=== PATIENT | male | born 1960 | race Caucasian/White ===

== ENCOUNTER → 2019-04-25 | Outpatient (CLI) | payer OTHER, SELFPAY | END | disposition home or self-care (01) | LOC: LABSPEC 16:04 | PROVIDERS: PCP Family Medicine; Referring Provider Otolaryngology Otolaryngology/Facial Plastic Surgery; Visit Provider Otolaryngology Otolaryngology/Facial Plastic Surgery | DX: J32.9 Chronic sinusitis, unspecified (principal) | CPT/HCPCS: 87070; 87077; 87205 ==

== ENCOUNTER → 2019-11-16 09:18 | Outpatient (CLI) | payer OTHER, SELFPAY ==
--- NOTE | 2019-11-16 | ASPOS_PTH ---
PATIENT: NORAH CHAVEZ LOC: LAB U#:[id number] AGE/SX: 65/M ROOM: RE11/16/[address]: Dr. Jovan Solomon DO : 1960 BED: DIS: SPEC #: [id number] RECD: 11/16/19 10:15 STATUS: VIRAL REQ #: [id number] YARON: 11/16/19 00:[address]: Jovan Rey DEPT: CYTOLOGY RECD BY: Carmelita Mayo ENTERED: 11/16/19 11:24 SP TYPE: ASP HERE OTHR DR: DO Dr. Bernard Ye MD Tissues: Parotid gland, NOS Procedures: Surgery Specimen Level IV Cytology Other Fine Needle Asp on Site Comments: @ Ordering doctor for SUIV edited from to @ by RGOHILTON at 11/17/19 1426 @ Ordering doctor for CYOTHER edited from to DR.AMATHU Ambrosio by RGOHILTON at 11/17/19 1426 @ Ordering doctor for FNAOS edited from to @ by RGOHILTON at 11/17/19 1426 @ Submitting doctor edited from to @ by RGOOD at 11/17/19 1426 HEADER OPERATION: Fine needle aspiration left parotid mass PRE-OP DIAGNOSIS: Left parotid mass TISSUE SUBMITTED: Left parotid mass DIAGNOSIS CYTOLOGY Left parotid mass, FNA (smears and cell block): Inflamed cystic lesion with atypical squamous epithelial cells and marked degenerative changes. See comment. SJ:eliud 11/17/19 COMMENT The specimen is evaluated at the time of FNA by Dr. Solomon. Immediate Evaluation = Consistent with contents of benign inflamed cyst. Excision of the lesion is necessary for definitive diagnosis. Clinical correlation and appropriate follow up are necessary. CYTOLOGY STUDY Slides are reviewed. CYTOLOGY GROSS Received is 2 ml of light rivero mucoid fluid labeled with the patient's name, and designated left parotid mass. Five imprints and five paps are made from the submitted fluid and the rest is added to CytoLyt for cell block preparation. Submitted for cytology study. / AM:eliud 11/16/19 TC:5 CPT: 67303, 05631, 60436, 30717
== END ==
PROVIDERS: PCP Family Medicine; Referring Provider Pathology Anatomic Pathology & Clinical Pathology; Visit Provider Pathology Anatomic Pathology & Clinical Pathology
DX: K11.8 Other diseases of salivary glands (principal)
CPT/HCPCS: 10021; 88161; 88305

== ENCOUNTER → 2019-12-05 08:07 | Outpatient (CLI) | payer OTHER, SELFPAY ==
--- NOTE | 2019-12-05 08:09 | CT_ITS ---
STUDY: CT SOFT TISSUE NECK WITH CONTRAST REASON FOR EXAM: Male, 59 years old. LEFT SIDED NECK MASS (MARKED WITH A BB) X 1 MONTH. RECENT BIOPSY OF MASS WHICH SHOWS BENIGN CYST RADIATION DOSAGE (If Supplied By Facility): CTDIvol = ( 18.72 ) mGy, DLP = ( 504.95 ) mGycm TECHNIQUE: The patient was scanned in a multi-detector CT scanner. High resolution transaxial imaging was performed following intravenous administration of IV 100mL Isovue-300. Sagittal and coronal images were reconstructed. Individualized dose optimization techniques were used for this CT. COMPARISON: None. FINDINGS: Normal bilateral parotid glands. Normal bilateral insurance specialist spaces. Normal bilateral parapharyngeal spaces. Normal bilateral carotid spaces. Normal bilateral sublingual and submandibular glands and spaces. Normal visualized nasopharynx. Normal retropharyngeal space. Normal perivertebral space. Normal visualized bilateral faucial tonsils. The visualized tongue, tongue base and oropharynx are normal. 3 cm round necrotic left jugular lymph node at the level of the floor the mouth worrisome for metastatic lymphadenopathy. However, no obvious etiology. There is no demonstrated solid or cystic mass lesion. There is no abnormal contrast enhancement. Normal epiglottis, bilateral vallecula and hypopharynx. The pre-epiglottic and paraglottic adipose spaces are normal. Normal visualized bilateral piriform sinuses, aryepiglottic folds, vocal cords, and arytenoid-cricoid articulations. Normal subglottic trachea. Normal bilateral lobes of the thyroid gland. Normal visualized pulmonary apices. Normal visualized paranasal sinuses. Normal visualized cervical spine. CT/Soft Tissue Neck WITH Contrast IMPRESSION: 3 cm necrotic left jugular lymphadenopathy the level before the mouth without obvious etiology. Clinical correlation is recommended. Electronically Signed: Troy Craig MD at 12:38 EDT Tel , Service support ,
[2019-12-05 08:20] LABS: CREATININE FINGERSTICK 0.9 mg/dL (0.70-1.30); EGFR FINGERSTICK > 60.0000 mL/min (>60)
== END ==
PROVIDERS: PCP Family Medicine; Referring Provider Otolaryngology Otolaryngology/Facial Plastic Surgery; Visit Provider Otolaryngology Otolaryngology/Facial Plastic Surgery
DX: R22.1 Localized swelling, mass and lump, neck (principal)
CPT/HCPCS: 70491; Q9967

== ENCOUNTER 2020-01-01 07:58 | Day surgery (SDC) | payer OTHER, SELFPAY ==
--- NOTE | 2019-12-26 12:17 | EKG12_ITS ---
Test Reason : PREOP Blood Pressure : / mmHG Vent. Rate : 086 BPM Atrial Rate : 086 BPM P-R Int : 160 ms QRS Dur : 100 ms QT Int : 372 ms P-R-T Axes : 074 064 085 degrees QTc Int : 445 ms Normal sinus rhythm Normal ECG Confirmed by DANIEL HUNT, ADINA ([id number]), desk editor TERI HICKS ([id number]) on 12/27/2019 9:13:23 AM Referred By: Ibrahima Rey Confirmed By:ADINA SANCHEZ MD
[2019-12-26 13:13] LABS: Hematocrit 42.5 % (40-54); Hemoglobin 14.4 g/dL (13.0-16.5); Mean Corp Hgb Conc 33.9 g/dL (32-36); Mean Corpuscular Hgb 34.9 pg (27.0-32.0); Mean Corpuscular Volume 102.9 fL (80-94); Mean Platelet Vol. 10.8 fl (6.2-12.0); Platelet Count 195 K/mm3 (150-450); RBC Distribution Width CV 12.1 % (11.6-14.6); RBC Distribution Width SD 45.8 fl (35.1-43.9); Red Blood Count 4.13 M/mm3 (4.6-6.2); White Blood Count 7.4 K/mm3 (4.4-11.0)
[2019-12-26 13:51] LABS: Anion Gap 6 (5-15); BUN 10 mg/dL (7-18); Calcium,Total 9.4 mg/dL (8.5-10.1); Chloride 105 mmol/L (98-107); EST Glomerular Filtration Rate 81 mL/min (>60); Est Glom Filt Rate - Afr Amer 98 mL/min (>60); Glucose 127 mg/dL (74-106); Sodium Level 138 mmol/L (136-145)
--- NOTE | 2020-01-01 | PHA_PTH ---
PATIENT: NORAH CHAVEZ [place] [facility] [place][id number] AGE/SX: 59/M ROOM: RE01/01/[address]: Dr. Ibrahima Rey MD : 1960 BED: DIS: 01/01/2020 SPEC #: [id number] RECD: 01/01/20 10:28 STATUS: VIRAL FINA #: [id number] YARON: 01/01/20 00:[address]: Ibrahima Rey DEPT: SURGICAL PATHOLOGY RECD BY: Belinda Field ENTERED: 01/01/20 11:01 SP TYPE: PHARYNX BX OTHR DR: Dr. Bernard Noe MD Tissues: A - Oropharynx, NOS B - Oropharynx, NOS C - Oropharynx, NOS D - Oropharynx, NOS E - Tonsil, NOS F - Tonsil, NOS G - Tongue, NOS Procedures: Frozen Section (charge) Frozen Section Add'l ([facility]) Surgery Specimen Level IV HEADER OPERATION: Direct laryngoscopy with biopsy and fine needle aspiration PRE-OP DIAGNOSIS: Localized swelling mass and lump left neck TISSUE SUBMITTED: A - Left inferior oropharynx, FS at 1023, B - Mid left oropharynx, FS at 1023, C - Superior left oropharynx, FS at 1023, D - Mid oropharynx, FS at 1026, E - Left tonsil, FS at 1103, F - Right tonsil for permanent, G - Left base of tongue for permanent FROZEN SECTION DIAGNOSIS A. Left inferior oropharynx, biopsy: No evidence of carcinoma. B. Mid left oropharynx, biopsy: No evidence of carcinoma. C. Superior left oropharynx, biopsy: No evidence of carcinoma. D. Mid oropharynx #2, biopsy: No evidence of carcinoma. AM:eliud 01/01/20 Case has been reviewed in consultation with Dr. Payton who concurs with the above diagnosis. 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 AM:eliud 01/01/20 MICROSCOPIC DIAGNOSIS A. Left inferior oropharynx, biopsy: Negative for carcinoma. B. Mid left oropharynx, biopsy: Negative for carcinoma. C. Superior left oropharynx, biopsy: Negative for carcinoma. D. Mid oropharynx #2, biopsy: Negative for carcinoma. See comment. E. Left tonsil, biopsy: Focal high grade dysplasia/carcinoma in situ. No evidence of invasive carcinoma. See comment. F. Right tonsil, biopsy: A piece of squamous mucosa, negative for carcinoma. See comment. G. Left base of tongue, biopsy: A piece of squamous mucosa, negative for carcinoma. See comment. DHARA:eliud 01/10/20 COMMENT D. Benign lymphoid tissue consistent with tonsillar tissue is noted. E. Immunohistochemistry ([id number]) performed here and also at [facility] supports the above diagnosis. The specimen is sent to [facility] for expert opinion and reviewed by Dr. Harris and above diagnosis is rendered. The complete report is viewable in patient's EMR. F. Lymphoid tissue is not seen. G. Benign lymphoid tissue consistent with tonsillar tissue is also noted. Case has been reviewed in consultation with Dr. Solomon who concurs with the above diagnosis. IDC:AM MICROSCOPIC DESCRIPTION Slides are reviewed. GROSS DESCRIPTION A - Received fresh for frozen section diagnosis labeled with the patient's name is a specimen designated left inferior oropharynx. The specimen consists of a piece of rivero soft tissue measuring 0.6 x 0.5 x 0.2 cm. The entire specimen is submitted for frozen section diagnosis in one cassette. / AM: 01/01/20 B - Received fresh for frozen section diagnosis labeled with the patient's name is a specimen designated mid left oropharynx. The specimen consists of a piece of rivero soft tissue measuring 1 x 1 x 0.1 cm. The entire specimen is submitted for frozen section diagnosis in one cassette. / AM: 01/01/20 C - Received fresh for frozen section diagnosis labeled with the patient's name is a specimen designated superior left oropharynx. The specimen consists of a piece of rivero soft tissue measuring 0.7 x 0.5 x 0.1 cm. The entire specimen is submitted for frozen section diagnosis in one cassette. / AM: 01/01/20 D - Received fresh for frozen section diagnosis labeled with the patient's name is a specimen designated mid oropharynx #2. The specimen consists of a piece of rivero soft tissue measuring 0.3 x 0.3 x 0.1 cm. The entire specimen is submitted for frozen section diagnosis in one cassette. / AM: 01/01/20 E - Received fresh for frozen section diagnosis labeled with the patient's name is a specimen designated left tonsil. The specimen consists of two fragments of red-rivero soft tissue measuring 0.5 and 2.8 x 1.2 x 0.6 cm. This piece is serially sectioned. The entire specimen is submitted for frozen section diagnosis in two cassettes. / AM: 01/01/20 F - Received in fixative is one container labeled with the patient's name and designated right tonsil. The specimen consists of a piece of rivero mucosal tissue measuring 0.7 x 0.7 x 0.3 cm. The entire specimen is submitted in one cassette. / SJ: 01/01/20 G - Received in fixative is one container labeled with the patient's name and designated base of tongue left. The specimen consists of a piece of rivero mucosal tissue measuring 0.5 x 0.5 x 0.3 cm. The entire specimen is submitted in one cassette. / SJ: 01/01/20 TC:0 CPT: 66678 x7, 15879 x5, 62063
--- NOTE | 2020-01-01 | IMM_PTH ---
PATIENT: NORAH CHAVEZ [place] [facility] [id number] AGE/SX: 59/M ROOM: RE01/01/[address]: Dr. Ibrahima Rey MD : 1960 BED: DIS: 01/01/2020 SPEC #: [id number] RECD: 01/03/20 12:27 STATUS: VIRAL REQ #: [id number] YARON: 01/01/20 00:[address]: Ibrahima Rey DEPT: IMMUNOHISTOCHEMISTRY RECD BY: Belinda Field ENTERED: 01/03/20 12:29 SP TYPE: IMMUNO OTHR DR: Dr. Bernard Noe MD Tissues: E - Tonsil, NOS Procedures: CK14 (add) CK5-6 (add) KI-67 (add) P16 (add) P53 (add) Pankeratin (initial) P40 (add) PHYSICIAN & INSTITUTION [place] [id number] SPECIMEN INFORMATION: Tissue Source: E - Left tonsil Clinical Info: Localized swelling mass and lump left neck Specimen Number: [id number] E1 CPT code: 85922, 66402 x6 METHODOLOGY: Deparaffinized sections of prefer/formalin-fixed tissue or PAP/DQ stained slides are incubated with monoclonal/polyclonal antibodies/oligonucleotide probes. Localization is made via biotin free immunoperoxidase method. Appropriate controls are performed and reacted as expected. Results on target cell population are indicated in the following table: RESULTS: ANTIBODY / CLONE RESULT Block E1 AE1-3 (AE1/AE3/PCK26) positive, focal CK5-6 (D5 & 1684) positive CK14 (LL002) positive P40 (BC28) positive P16 (E6H4) positive, focal, patchy Ki-67 (30-9) positive, low P53 (DO-7) positive, rare These tests were developed and their performance characteristics determined by [facility]. They may not have been cleared or approved by the U.S. Food and Drug Administration. The FDA has determined that such clearance or approval is not necessary. The above immunohistochemical/dualISH markers are ordered and reviewed by the Pathologist. INTERPRETATION: E. Left tonsil, biopsy: Focal high grade dysplasia/carcinoma in situ. SJ:eliud 01/10/20 The specimen is sent to [facility] for expert opinion and reviewed by Dr. Harris and above diagnosis is rendered. This case has been reviewed in consultation with Dr. Solomon who concurs with the above diagnosis.
--- NOTE | 2020-01-01 | IMM_PTH ---
PATIENT: NORAH CHAVEZ [place] [facility] [place][id number] AGE/SX: 59/M ROOM: RE01/01/[address]: Dr. Ibrahima Rey MD : 1960 BED: DIS: 01/01/2020 SPEC #: [id number] RECD: 01/02/20 14:10 STATUS: VIRAL REQ #: [id number] YARON: 01/01/20 00:[address]: Ibrahima Rey DEPT: IMMUNOHISTOCHEMISTRY RECD BY: Belinda Field ENTERED: 01/02/20 14:11 SP TYPE: IMMUNO OTHR DR: Dr. Bernard Noe MD Tissues: Neck, NOS Procedures: CK14 (add) CK5-6 (add) CK7 (add) KI-67 (add) P16 (add) Pankeratin (initial) P40 (add) PHYSICIAN & INSTITUTION [place] [id number] SPECIMEN INFORMATION: Tissue Source: FNA left neck Clinical Info: Localized swelling mass and lump left neck Specimen Number: [id number] CPT code: 43456, 47489 x6 METHODOLOGY: Deparaffinized sections of prefer/formalin-fixed tissue or PAP/DQ stained slides are incubated with monoclonal/polyclonal antibodies/oligonucleotide probes. Localization is made via biotin free immunoperoxidase method. Appropriate controls are performed and reacted as expected. Results on target cell population are indicated in the following table: RESULTS: ANTIBODY / CLONE RESULT AE1-3 (AE1/AE3/PCK26) positive CK7 (OV-TL12/30) negative CK5-6 (D5 & 1684) positive CK14 (LL002) positive P40 (BC28) negative P16 (E6H4) negative Ki-67 (30-9) negative These tests were developed and their performance characteristics determined by [facility]. They may not have been cleared or approved by the U.S. Food and Drug Administration. The FDA has determined that such clearance or approval is not necessary. The above immunohistochemical/dualISH markers are ordered and reviewed by the Pathologist. INTERPRETATION: Left neck, fine needle aspiration: Atypical squamous cells consistent with metastatic squamous cell carcinoma. AM:eliud 01/03/20 Case has been reviewed in consultation with Dr. Payton who concurs with the above diagnosis. IDC:DHARA
--- NOTE | 2020-01-01 | FLU_PTH ---
PATIENT: NORAH CHAVEZ LOC: [facility] [place] U#:[id number] AGE/SX: 59/M ROOM: RE01/01/[address]: Dr. Ibrahima Rey MD : 1960 BED: DIS: 01/01/2020 SPEC #: [id number] RECD: 01/01/20 13:16 STATUS: VIRAL FINA #: [id number] YARON: 01/01/20 00:[address]: Ibrahima Rey DEPT: CYTOLOGY RECD BY: Carmelita Mayo ENTERED: 01/01/20 13:17 SP TYPE: Fluid OTHR DR: Dr. Bernard Noe MD Tissues: Neck, NOS Procedures: Special Stain Group II Cytospin Fluid HEADER OPERATION: Direct laryngoscopy with biopsy and fine needle aspiration PRE-OP DIAGNOSIS: Localized swelling mass and lump left neck TISSUE SUBMITTED: Fine needle aspiration left neck DIAGNOSIS CYTOLOGY Fine needle aspiration, left neck mass (cytospin and cell block): Atypical degenerating squamoid cells consistent with metastatic squamous cell carcinoma. AM:eliud 01/02/20 COMMENT Immunohistochemistry ([id number]) supports the above diagnosis. Please correlate with surgical specimen ([id number]). Reference is made to the patient's left parotid mass fine needle aspiration ([id number]) in which inflamed cystic lesion with atypical squamous epithelial cells and marked degenerative changes were identified. Case has been reviewed in consultation with Dr. Payton who concurs with the above diagnosis. IDC:SJ CYTOLOGY STUDY Slides are reviewed. CYTOLOGY GROSS Received is 2 ml of cloudy light rivero fluid labeled with the patient's name and and designated per the requisition as left neck. Submitted for cytology preparation including cell block. Two touch imprints are prepared at the time FNA. / eliud 01/01/20 TC:0 CPT: 79871, 71529
[2020-01-01 09:10] VITALS: BP 115/62; PULSE 73; RESP 16; TEMP 36.7; O2SAT 96; BMI 29.5
[2020-01-01] MEDS: Lactated Ringers 1,000 ML 100 ML IV (09:24)
--- NOTE | 2020-01-01 09:59 | DCINST_ITS ---
Discharge Diet: Soft diet Additional Activity Instructions:: soft diet x 2 weeks. Allergies/Adverse Reactions: Allergies Penicillins Allergy (Verified 12/22/19 10:13) PT UNSURE OF REACTION Medications to take at Discharge Aspirin E.C. [Ecotrin] 81 mg PO DAILY@0800 12/22/19 Atorvastatin Calcium [Lipitor] 40 mg PO QHS 12/22/19 Cilostazol 100 mg PO DAILY 12/22/19 Clopidogrel Bisulfate [Plavix] 75 mg PO DAILY 12/22/19 Enalapril Maleate [Vasotec] 5 mg PO BID 12/22/19 Metoprolol Tartrate [Lopressor (Beta Gordo)] 25 mg PO BID 12/22/19 Primary Care Physician: Bernard Noe MD [Primary Care Provider] - Test Results: Test results from this visit will be discussed in further detail at your follow- up appointment, if applicable.
[2020-01-01] MEDS: Bupivacaine Mpf 0.5% 30 ML VIAL (11:00)
[2020-01-01] MEDS: Epinephrine (1 mg/ml) 1 MG/ML VIAL (11:20)
--- NOTE | 2020-01-01 11:23 | OP.PCM_ITS ---
Report of Operation Date of Procedure: 01/01/20 Pre-Operative Diagnosis: left neck mass Post-Operative Diagnosis: same Surgery/Procedure Performed:: Direct laryngoscopy with biopsy. Left tonsillectomy. Left fine needle aspiration left neck Description of Surgical Findings:: left neck mass Type of Anesthesia:: General Anesthesiologist: Abiodun Lu Specimen's removed: left tonsil, right tonsil biopsy, right base of tongue biopsy, fine needle aspirate left neck Estimated Blood Loss (mL): minimal Description of Procedure: Patient was taken to the operating room on 01/01/2020. He was placed in supine position on the operating table. He is given sufficient general endotracheal anesthesia. Tables are 90 degrees in a clockwise fashion. A Dedo laryngoscope inserted the patient's pharynx. The soft palate uvula tonsillar fossa bilaterally base of tongue bilaterally were inspected. There is no gross disease. I then inspected the larynx and bilateral piriform sinuses and these were found to be normal as well. The tonsillar tissue was not well-defined on the left side. I thus elected to take biopsies with large cup forceps of the inferior mid and superior tonsillar fossa to not only see if there was tonsillar tissue with to see if there was carcinoma. Frozen section came back as no carcinoma or tonsillar tissue. I then elected to perform left tonsillectomy. Ill defined tissue was grasped with an Allis clamp and removed using Bovie cautery. Hemostasis was obtained using suction cautery. 0.5% Marcaine was placed on adenoid sponge and placed in the left tonsillar fossa for 1 minute. This was then removed. The nasopharynx was inspected with a mirror and found to be completely normal. I elected to take a biopsy of the right tonsil. This was performed with cup forceps and sent for permanent section. Hemostasis was achieved with suction cautery. Next I took a biopsy of the base of tongue with cup forceps. Hemostasis was achieved with an adrenaline pledget. Next I treated the skin overlying his left neck mass with isopropyl alcohol. I placed an 18- gauge within the neck mass and aspirated 2 cc of straw-colored fluid. This was sent to pathology as well. All instrumentation was removed. The Patient was turned back to the regular anesthesia position and awoken he was brought to the recovery room in stable condition. Blood loss minimal, replacement none. Sponge, needle, and instrument count were correct at the end of procedure.
[2020-01-01 11:31] VITALS: BP 115/62; BP 123/74; PULSE 102; RESP 18; TEMP 36.6; O2SAT 96
[2020-01-01 11:45] VITALS: BP 115/62; BP 120/70; PULSE 97; RESP 16; O2SAT 95
[2020-01-01 12:00] VITALS: BP 115/62; BP 116/57; PULSE 90; RESP 20; O2SAT 95
[2020-01-01 12:20] VITALS: BP 105/68; BP 115/62; PULSE 89; RESP 18; TEMP 36.3; O2SAT 94
[2020-01-01 13:18] VITALS: BP 115/62; BP 125/72; PULSE 86; RESP 16; TEMP 36.5; O2SAT 93
== END 2020-01-01 13:22 | disposition home or self-care (01) ==
LOC: SDC 07:58 → AC 09:00
PROVIDERS: Anesthesiology; PCP Family Medicine; Referring Provider Otolaryngology; Visit Provider Otolaryngology
PROC: 0CJS8ZZ Inspection of Larynx, Via Natural or Artificial Opening Endoscopic (ICD-10-PCS; CPT 31575; principal; 2020-01-01 09:15)
PROC: (CPT 10021; 2020-01-01 09:15)
DX: C09.9 Malignant neoplasm of tonsil, unspecified (principal); R22.1 Localized swelling, mass and lump, neck; Z11.59 Encounter for screening for other viral diseases; I10 Essential (primary) hypertension; I25.2 Old myocardial infarction; E78.00 Pure hypercholesterolemia, unspecified; Z87.19 Personal history of other diseases of the digestive system; Z95.5 Presence of coronary angioplasty implant and graft; Z79.82 Long term (current) use of aspirin; Z79.02 Long term (current) use of antithrombotics/antiplatelets; Z79.899 Other long term (current) drug therapy; F17.200 Nicotine dependence, unspecified, uncomplicated
CPT/HCPCS: 00320; 10021; 31535; 42826; 36415; 80048; 85027; 87635; 88108; 88304; 88305; 88313; 88331; 88332; 88341; 88342; 93005; C9803; J7120; J2405; U0003

== ENCOUNTER → 2020-01-17 07:43 | Outpatient (CLI) | payer OTHER, SELFPAY ==
[2020-01-01 09:10] VITALS: BMI 29.5
[2020-01-16 09:22] VITALS: BMI 28.9
[2020-01-16 16:44] VITALS: BMI 28.9
--- NOTE | 2020-01-17 08:00 | PET_ITS ---
EXAMINATION: FDG PET/CT INDICATIONS: A 60-year-old male with reported history of neck carcinoma presenting for restaging examination. COMPARISON EXAMINATION: CT of the neck report dated 12/05/2019 INDEX LESION SIZE SUV INTERPRETATION Left lateral neck level II-A-left vascular space 41.2 x 45.7-mm (frame 261) 8.4 Fulfills quantitative criteria for viable neoplasm Left pharyngeal mucosal space lingual tonsil 17.2-mm (frame 265) 3.4 Fulfills quantitative criteria for viable neoplasm TECHNIQUE: Following the intravenous administration of 14.2 mCi of F-18 deoxyglucose via the left antecubital fossa, multiplanar image acquisitions of the neck, chest, abdomen and pelvis to level of mid thigh, obtained at one hour post radiopharmaceutical administration contemporaneously interpreted with the current CT of the neck, chest, abdomen and pelvis to level of mid thigh, dated 01/16/[address] of the neck report dated 12/05/2019 reveal: SERUM GLUCOSE LEVEL: 116 mg/dl. HEIGHT: 66 inches. WEIGHT: 179 lbs. FINDINGS: 1. There is a circumferential increase in glucose metabolism with central photopenia defined in the left lateral neck involving level II-A extending to the left vascular-carotid space. The calculated maximal standard uptake value is 8.4. The maximal axial diameter of the corresponding metabolic, morphologic abnormality on review of CT of the neck dated 01/17/2020 is 41.2-mm (transverse) x 45.7-mm (AP). 2. Facilitated glucose metabolism is manifest in the left pharyngeal mucosal space in the region of the lingular tonsil generating a calculated maximal standard uptake value of 3.4. The maximal axial diameter of the corresponding metabolic abnormality on review of CT of the neck dated 01/17/2020 is 17.2-mm (AP). 3. Normal physiologic distribution of the radiopharmaceutical is apparent in the hepatic (2.4) and splenic parenchyma, both renal units, bladder and visualized intestinal tract. The visualized portion of the cerebral cortex demonstrate symmetric and preserved glucose metabolism. Diffuse radiopharmaceutical concentration is noted in all four quadrants of the abdomen and pelvis. Pertinent CT findings are as follows: CHEST: There is atherosclerotic calcification defined in the thoracic aorta without evidence of dilatation-aneurysm formation. Coronary arterial calcification is observed. Bilateral subcentimeter axillary soft tissue densities with fatty hilus are non-glucose avid. Mediastinal soft tissue with fatty hilus is ametabolic. A pericardial effusion is noted without evidence of quantitatively significant enhanced FDG uptake. There are no parenchymal densities-nodules defined in the right and left hemithorax with discernible quantitatively significant increased FDG concentration. ABDOMEN AND PELVIS: The gallbladder is surgically absent. There is atherosclerotic calcification defined in the abdominal aorta without evidence of dilatation-aneurysm formation. Abdominal-pelvic arterial calcification is demonstrated. Colonic diverticulosis is encountered without evidence of diverticulitis. Right and left inguinal soft tissue densities with fatty hilus are ametabolic. Calcifications are noted in the bilateral renal units. SKELETAL: Degenerative changes are noted in the cervical, thoracic and lumbar spine. PET/PET/CT Tumor Base -Thigh Init IMPRESSION: 1. ABNORMAL EXAMINATION INDICATIVE OF MALIGNANT VIABLE NEOPLASM. 2. Increased glucose concentration observed in the left lateral neck corresponding to a partial necrotic soft tissue density on review of CT of the neck dated 01/17/2020 fulfills quantitative criteria for viable neoplasm. 3. There is tracer uptake noted in the left pharyngeal mucosal space in the region of the lingual tonsil fulfills quantitative criteria for viable neoplasm. 4. No other quantitatively significant hypermetabolic abnormalities are noted. There is no definitive scintigraphic evidence of distant metastatic disease. Electronic Signature Troy Velasco D.O. Accurate Quantification of SUVs for this report are calculated using the exclusive [employer]. Electronically Signed: Troy Velasco DO at 20:29 EST Tel , Service support ,
== END ==
PROVIDERS: PCP Family Medicine; Referring Provider Otolaryngology; Visit Provider Otolaryngology
DX: C09.9 Malignant neoplasm of tonsil, unspecified (principal); C76.0 Malignant neoplasm of head, face and neck
CPT/HCPCS: 78815; A9552

== ENCOUNTER 2020-01-31 11:02 | Day surgery (SDC) | payer OTHER, SELFPAY ==
[2020-01-16 09:22] VITALS: BMI 28.9
[2020-01-24 09:54] VITALS: BMI 29.8
[2020-01-30 08:16] VITALS: BMI 29.3
--- NOTE | 2020-01-31 10:10 | HP_ITS ---
Intake Vital Signs 01/24/20 Height 5 ft 6 in 01/24/20 Weight: 185 lb 01/24/20 BMI 29.8 01/24/20 BP 131/76 H 01/24/20 Blood Pressure Location Rt brachial 01/24/20 Position Sitting 01/24/20 Respiration 18 Intake Visit Reasons: Port & Peg Placement Consult Chief Complaint: Discuss port/peg Audio Visual Specialist Required: No Is patient in pain?: No Allergies Penicillins Allergy (Verified 01/24/20 09:55) PT UNSURE OF REACTION Medications Aspirin E.C. [Ecotrin] 81 mg PO DAILY@0800 12/22/19 [History Confirmed 01/24/20] Atorvastatin Calcium [Lipitor] 40 mg PO QHS 12/22/19 [History Confirmed 01/24/20] Cilostazol 100 mg PO DAILY 12/22/19 [History Confirmed 01/24/20] Clopidogrel Bisulfate [Plavix] 75 mg PO DAILY 12/22/19 [History Confirmed 01/24/20] Enalapril Maleate [Vasotec] 5 mg PO BID 12/22/19 [History Confirmed 01/24/20] Metoprolol Tartrate [Lopressor (Beta Gordo)] 25 mg PO BID 12/22/19 [History Confirmed 01/24/20] PFSH Medical History Hypercholesteremia (Acute) HTN (hypertension) (Chronic) Surgical History H/O heart artery stent (Acute ~03/01/09) Hx of tonsillectomy (Acute) Family History Father Diabetes Mother Breast cancer Brother Colon cancer Social History (Updated 01/24/20 @ 10:[address] Rubio Mills MD) Smoking Status: Current every day smoker HPI HPI HPI: NORAH CHAVEZ, is a 60 M who presents to the office today for HPI HPI Surgical H&P: Yes HPI: NORAH CHAVEZ, is a 60 M who presents to the office today for Tonsillar cancer needing port and PEG. The patient had tonsillectomy in the left showing carcinoma and he has a necrotic lymph node with possible carcinoma metastasis. Patient requires PEG tube for enteric feeding as well as a port for chemotherapy. ROS General General: No weight change or fatigue HEENT HEENT: Yes swollen glands Cardio Cardiovascular: Yes heart disease, high blood pressure, heart attack and heart stent; no murmur, pacemaker, atrial fibrillation, palpitations, shortness of breat with exertion or chest pain Psych Psychiatric: No depression or anxiety Resp Respiratory: No shortness of breath, No sleep apnea, No cough, No COPD, No asthma, No emphysema, No wheezing Gastro Gastrointestinal: No abdominal pain, No nausea or vomiting, No diarrhea, No constipation, No blood in stool, No acid reflux, No hemorrhoids, No ulcers, No gallbladder problem, No black,tarry stools Moses Hematologic: Yes blood thinners Exam Const General: cooperative Orientation: alert, oriented x3 Resp Effort & Inspection: normal respiratory effort Auscultation: clear to auscultation bilaterally Cardio Rate: regular rate Rhythm: regular rhythm Heart Sounds: no murmurs GI Inspection: non-distended Palpation: soft, nontender Assessment & Plan Problems 1. 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 Adjustment and management of vascular access device Z45.2 Plan The patient requires PEG tube placement as well as right chest port placement. I discussed both these procedures with him. I discussed port placement as well as the risks of bleeding, infection, pneumothorax, line infection or DVT. I also discussed EGD with PEG placement and the risks of bleeding, bowel injury, infection or bleeding. Patient understands the risks of all the procedures and is willing to proceed with both procedures. Patient has been holding his aspirin and Plavix since his last procedure and has not restarted them. Plan for procedure next week so the patient can start his chemotherapy by February 04. I explained endoscopy in detail to the patient. I explained the risks including but not limited to stroke or heart attack with anesthesia, perforation of the GI tract, bleeding, infection. I explained that any of these could necessitate further emergency surgery. The patient understands and all questions were answered sufficiently. The patient wishes to proceed with procedure. We discussed the current risks associated with COVID-19. While it is understood that there is a community spread of COVID-19, the risk of kaitlin COVID-19 while at [facility] ([facility]) is very low; however, the risk cannot be completely mitigated because of the community spread of the disease. We discussed in detail the risk of exposure to and/or potential harm posed by the COVID-19 virus with having a surgery/procedure at this time versus the risk of delaying the surgery/procedure. It is not possible to know either the risk of delaying the surgery or procedure or chance of getting an infection with perfect accuracy, but a joint decision was made to proceed at this time with the scheduled surgery/procedure as indicated on the consent form. Patient was notified that we will need to comply with any screening or testing [facility] wishes to perform or that surgery may be delayed for any positive results. 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 There are no clinical changes since date of exam.
[2020-01-31 11:39] VITALS: BP 91/54; PULSE 79; RESP 18; TEMP 36.9; O2SAT 99; BMI 29.0
[2020-01-31] MEDS: Lactated Ringers 1,000 ML 100 ML IV (12:00)
[2020-01-31] MEDS: Bupiv/Epi 0.5% Mpf 30 ML Vial (12:40)
[2020-01-31 13:21] VITALS: BP 104/65; BP 91/54; PULSE 88; RESP 16; TEMP 36.1; O2SAT 98
--- NOTE | 2020-01-31 13:25 | RAD_ITS ---
STUDY: X-RAY CHEST REASON FOR EXAM: Male, 60 years old. Post op port TECHNIQUE: Single AP portable view of the chest. COMPARISON: None. FINDINGS: A right-sided portacatheter has been placed. The tip is at the junction of the superior vena cava and right atrium. Mild increased interstitial markings in the lungs suggest some mild scarring. There is no demonstrated pleural abnormality. Normal size heart. Normal mediastinum and romy. Normal visualized pulmonary arteries. There is atherosclerotic calcification of the aortic arch with tortuosity. There are diffuse degenerative changes of the visualized thoracic spine. Normal visualized ribs, clavicles, and shoulders. There is no demonstrated abnormality of the visualized soft tissue structures of the upper abdomen. RAD/CXR for Line Placement IMPRESSION: Status post right-sided portacatheter placement. The tip is at the junction of the superior vena cava and right atrium. Electronically Signed: Juan Graves, at 14:18 EST , Service support ,
--- NOTE | 2020-01-31 13:26 | PCM.OPRPT ---
Problem List (1) Encounter for adjustment and management of vascular access device Status: Acute (2) Squamous cell carcinoma of left tonsil Status: Acute Report of Operation Date of Procedure: 01/31/20 Pre-Operative Diagnosis: Tonsillar cancer Post-Operative Diagnosis: Same Surgery/Procedure Performed:: 1. Ultrasound and fluoroscopy guided right chest port placement utilizing right IJ. 2. EGD with PEG tube placement Description of Procedure: After obtaining informed consent patient was brought back to the operating room MAC anesthesia was induced and the right chest and neck were prepped in normal sterile fashion. Ultrasound was used to evaluate both IJs and the right IJ was selected. Next, using a needle, the right IJ was accessed and a guidewire was passed on into the superior vena cava under fluoroscopy guidance. A small incision was made over the puncture site and the dilator introducer was placed over the guidewire. Next this was capped and the pocket was made for the port. 1% lidocaine with epinephrine was injected in the proposed port site. An incision was made with scalpel. Electrocautery was used to make a pocket under the skin and subcutaneous tissue. Hemostasis was obtained. Next, the catheter was tunneled up to the neck incision site and placed through the introducer. The peel-away introducer was removed and the position of the catheter was confirmed on fluoroscopy. Next, the catheter was trimmed and attached to the port with the locking device. Interrupted 2-0 Vicryl sutures were used to anchor the port to the chest wall and then the port was placed inside the pocket. The pocket was then flushed with saline and the port irrigated with saline. There was good blood return and the port flushed easily. Next, heparin was injected into the port. The skin was closed with subcutaneous interrupted 3-0 Vicryl sutures. A single 3-0 Vicryl sutures placed under the skin at the neck incision site. Steri-Strips were placed as well as op sites. Next an EGD was performed. The endoscope was placed into the mouth and down into the stomach and the stomach was insufflated. There was good transillumination and palpation in the left upper quadrant. The abdomen was prepped and draped in usual sterile fashion. An incision area was injected with local anesthetic and a small incision was made. The needle was placed through the skin into the stomach with ease and the guidewire was placed through the catheter. Using the endoscope a snare was used to grasp the guidewire and it was brought back through the mouth and the PEG tube was attached to it and pulled back through the incision. A 20 [place] [employer] pull PEG tube was used. The endoscope was placed back into the mouth and down into the stomach and placement was confirmed endoscopically. The bumper was placed over the catheter in place a 4 cm. The tube on the stomach wall was snug as was the bumper on the skin. Antibiotic ointment was then placed on the skin and dressing was applied. Patient tolerated procedure well, was taken to PACU in stable condition. Chest x-ray will be obtained. Grafts/Implants Used: 1. 6 [place] [employer] 2. 20 [place] Endovi pull [employer] feedin - Admit VTE Documentation VTE Mechan Device Prophylaxis: SCD's
[2020-01-31 13:30] VITALS: BP 103/73; BP 91/54; PULSE 75; RESP 16; O2SAT 99
--- NOTE | 2020-01-31 13:30 | DCINST_ITS ---
Discharge Diet: No Restrictions - Pain medication may cause nausea. You should typically eat light foods as you take your pain medication. Discharge Activity: Return to Normal Activity, May Shower - with your bandage in place in 1-2 days after surgery. DO NOT SHOWER WHEN YOUR PORT IS ACCESSED. Call your doctor if your incision/area has: Continuous Slow Oozing, Sudden Increased Bleeding, Increased Pain/ Swelling, Increased Redness Call your doctor if you observe: Fever of 101 or Higher Remove Dressing in (days):: 3 - When you remove the bandage, leave the steri- strips intact until they fall off. Cleanse incision/area with: Soap & Water Allergies/Adverse Reactions: Allergies Penicillins Allergy (Verified 01/31/20 11:35) PT UNSURE OF REACTION Medications to take at Discharge Atorvastatin Calcium [Lipitor] 40 mg PO QHS 12/22/19 Cilostazol 100 mg PO DAILY 12/22/19 Enalapril Maleate [Vasotec] 5 mg PO BID 12/22/19 Metoprolol Tartrate [Lopressor (Beta [place]ordo)] 25 mg PO BID 12/22/19 Lidocaine/Prilocaine [Lidocaine-Prilocaine Cream] 1 applicatio TP DAILY PRN PRN 30 Days #1 tube 01/30/20 Ondansetron [Zofran] 8 mg PO Q8H PRN PRN 10 Days #30 tab 01/30/20 Oxycodone HCl/Acetaminophen [Percocet 5-325 mg Tablet] 1 tab PO Q6H PRN PRN 3 Days #10 tablet 01/31/20 The following prescriptions were given: Oxycodone HCl/Acetaminophen [Percocet 5-325 mg Tablet] 1 tab PO Q6H PRN PRN 3 Days #10 tablet PRN Reason: Pain Score 4-10/10 Transmission Status: Sent to [facility] Test Results: Test results from this visit will be discussed in further detail at your follow- up appointment, if applicable. Please Follow Up With: Rubio Mills MD When: Please call to schedule 2 week follow up appointment. [phone]
[2020-01-31 13:35] VITALS: BP 106/68; BP 91/54; PULSE 70; RESP 16; O2SAT 99
[2020-01-31 13:40] VITALS: BP 103/72; BP 91/54; PULSE 73; RESP 16; TEMP 36.2; O2SAT 98
[2020-01-31 14:35] VITALS: BP 91/54
== END 2020-01-31 14:57 | disposition home or self-care (01) ==
LOC: SDC 11:02 → AC 11:04
PROVIDERS: PCP Family Medicine; Referring Provider Surgery; Visit Provider Surgery
PROC: (CPT 36561; principal; 2020-01-31 12:45)
PROC: 0DJ08ZZ Inspection of Upper Intestinal Tract, Via Natural or Artificial Opening Endoscopic (ICD-10-PCS; CPT 43235; principal; 2020-01-31 13:45)
DX: Z45.2 Encounter for adjustment and management of vascular access device (principal); C09.9 Malignant neoplasm of tonsil, unspecified; Z20.828 Contact with and (suspected) exposure to other viral communicable diseases; I10 Essential (primary) hypertension; I25.2 Old myocardial infarction; E78.00 Pure hypercholesterolemia, unspecified; Z87.19 Personal history of other diseases of the digestive system; Z79.82 Long term (current) use of aspirin; Z79.02 Long term (current) use of antithrombotics/antiplatelets; Z79.899 Other long term (current) drug therapy; F17.200 Nicotine dependence, unspecified, uncomplicated
CPT/HCPCS: 00532; 36561; 43246; 71045; 77001; 87426; C9803; J7120

== ENCOUNTER 2020-07-30 07:30 | Outpatient (RCR) | payer OTHER, SELFPAY ==
[2020-01-16 09:22] VITALS: BMI 28.9
[2020-04-22 11:40] VITALS: BMI 30.4
[2020-07-03 14:15] VITALS: BMI 29.8
--- NOTE | 2020-07-04 11:05 | HP.OTEVAL_ITS ---
Patient's Visit Information NORAH CHAVEZ is a 60 year old M, referred to Occupational Therapy by Dr. Gomez Breen, , with a diagnosis of lymphedema. Date of Evaluation: 07/04/20 Occupational Therapist: JORGE Renteria/Sofy, CHT - Subjective This 60 year old male was seen for OT eval with dx of lymphedema. Pt states he was dx tonsil cancer- left tonsil removed 2019- chemo- 33 radiation pt states three weeks ago he noticed increase swelling and feels he is having trouble with breathing . pt would like to know what he can do to decrease the swelling. - Objective 45.5cm neck circumference - Goals Demonstrate a 20% reduction in edema by d/c: Yes Demonstrate adequate knowledge of self-massage by 2nd week: Yes Demonstrate adequate knowledge therapeutic exercises by d/c: Yes Select approp compression garment w/donning/care/wear by d/c: Yes Voice need to replace compression garment every 4-6mo by dc: Yes - Rehabilitation General Assessment: pt demo need for skilled OT services to ed. pt on mtg of neck lymphedema- Due to pts limited availability pt reluctant to return on a regular basis. Today therapist ed. pt on dx, and self manual lymph drainage, need of compression garment and wear to order, as well as lymph stimulation exercises. Therapist ed. pt on use of kinesio tape until he gets his compression garment- therapist gave handout -pt demo understanding and advised to return at his first available time. Rehabilitation Potential: Fair - Anticipated Interventions Education re Diagnosis, Manual Lymph Drainage, Education re Life-long lymphedema Management, Education re Skin Care and Precautions, Education re Self Massage Techniques, Education re Correct Donning Tech,Care&Wearing Sched Comp Garments - Visit Plan Frequency: Every Other Week Duration: 4 Weeks TEXT: Thank you for the opportunity to evaluate your patient. For Medicare and Medicare HMO plans, please review the plan of care and approve it. It will need to be FAXED BACK to us at [phone] for Medicare purposes. Please let me know if there are questions or concerns regarding this plan of care. Physician Signature: Date:
--- NOTE | 2020-07-26 07:55 | OTREVAL_ITS ---
Dr. Gomez Breen, DO, It has been my pleasure to treat NORAH CHAVEZ over the last 2 visits for lymphedema. Please see the progress note below for an update on the occupational therapy plan of care! Subjective: pt arrives states he is having difficulty mtg lymphedema- using neck/head compression garment. pt states use of kiniso tape and performing self manual lymph drainage is difficult. would like to know if there's anything else he can do to mtg. Objective/Function: pt demo with increase of 4cm in neck circumference despite use of facial/neck compression garment and kinesio tape during the day- pt at risk for complications if pt can not mtg. neck lymphedema. pt would benefit from home flexi touch compression pump to use to assist in medical mtg. of pts neck lymphedmea. Plan Frequency: 1-2x /Week Duration: 3 Weeks - until pt can get flexi-touch home unit Plan: will call and give demographic to DME to get pt home compression pump Goals - Goals Demonstrate a 20% reduction in edema by d/c: Yes Demonstrate adequate knowledge of self-massage by 2nd week: Yes Demonstrate adequate knowledge therapeutic exercises by d/c: Yes Select approp compression garment w/donning/care/wear by d/c: Yes Voice need to replace compression garment every 4-6mo by dc: Yes Patient Goals: Learn how to Manage Lymphedema, Other Other: learn how to apply compression neck garment. home flexi- touch neck compression device Anticipated Interventions Anticipated Interventions: Education re Diagnosis, Manual Lymph Drainage, Education re Life-long lymphedema Management, Education re Skin Care and Precautions, Education re Self Massage Techniques, Education re Correct Donning Tech,Care&Wearing Sched Comp Garments Please do not hesitate to contact me at [phone] by phone or Fax: if you have questions or concerns regarding this new plan of care! Sincerely, Janel Elliott, OTR/L, CHT
--- NOTE | 2020-08-21 09:19 | OTREVAL_ITS ---
Dr. Gomez Breen, DO, It has been my pleasure to treat NORAH CHAVEZ over the last 3 visits for lymphedema. Please see the progress note below for an update on the occupational therapy plan of care! Subjective: pt arrives states he was able to wear his compression garment more last night Objective/Function: neck 47. 1/4cm this is down from 49. following manual lymph drainage pt demo neck circumference t 46.5 cm. pt continues to struggle with mtg of his lymphedema and would benefit from a home lymph pump to help mtg his lymphedema. Plan Frequency: 1-2x /Week Duration: 3 Weeks - until pt can get flexi-touch home unit Plan: cont with self manual lymph massage, use of compression garment and use of k-tape until pt gets home unit Goals - Goals Demonstrate a 20% reduction in edema by d/c: Yes Demonstrate adequate knowledge of self-massage by 2nd week: Yes Demonstrate adequate knowledge therapeutic exercises by d/c: Yes Select approp compression garment w/donning/care/wear by d/c: Yes Voice need to replace compression garment every 4-6mo by dc: Yes Patient Goals: Learn how to Manage Lymphedema, Other Other: learn how to apply compression neck garment. home flexi- touch neck compression device Anticipated Interventions Anticipated Interventions: Education re Diagnosis, Manual Lymph Drainage, Education re Life-long lymphedema Management, Education re Skin Care and P recautions, Education re Self Massage Techniques, Education re Correct Donning Tech,Care&Wearing Sched Comp Garments Please do not hesitate to contact me at [phone] by phone or if you have questions or concerns regarding this new plan of care! Sincerely, Janel Elliott, OTR/L, CHT
--- NOTE | 2020-10-21 12:21 | HP.OT.NRP ---
NORAH LINDA CHAVEZ was seen in my office for initial evaluation on 07/04/20. The following Plan of Care was established for this patient: Initial Frequency: 1-2x /Week Initial Duration: 3 Weeks - until pt can get flexi-touch home unit Plan: cont with self manual lymph massage, use of compression garment and use of k-tape until pt gets home unit Anticipated Interventions: Education re Diagnosis, Manual Lymph Drainage, Education re Life-long lymphedema Management, Education re Skin Care and Precautions, Education re Self Massage Techniques, Education re Correct Donning Tech,Care&Wearing Sched Comp Garments This patient was last seen in our office 07/30/20. Pertinent comments regarding their Occupational therapy will appear below: Pt was seen in OT clinic for neck lymphedema- after conservative tx failed pt was able to get flexi touch to assist in mtg. neck lymphedema- pt has not called with questions or concerns at this time- pt d/c with HEP. pt to return to dr. with any increase in swelling. At this point I will be discontinuing this patient from occupational therapy. I would be happy to see this patient again in the future if found appropriate by the physician. Thank you! Janel Elliott, OTR/L, CHT
== END 2020-07-30 19:00 | disposition home or self-care (01) ==
LOC: OT 07:30
PROVIDERS: PCP Family Medicine; Referring Provider Student in an Organized Health Care Education/Training Program; Visit Provider Student in an Organized Health Care Education/Training Program
DX: I89.0 Lymphedema, not elsewhere classified (principal); C09.9 Malignant neoplasm of tonsil, unspecified
CPT/HCPCS: 97110; 97140; 97166

== ENCOUNTER 2020-08-20 09:23 | Outpatient (RCR) | payer OTHER, SELFPAY ==
[2020-01-16 09:22] VITALS: BMI 28.9
[2020-07-03 14:15] VITALS: BMI 29.8
--- NOTE | 2020-08-20 10:53 | HP.SP.AD_ITS ---
History - History Date of Eval: 08/20/20 Medical Diagnosis (from RX): Squamous cell carcinoma of left tonsil (C09.9) Date of Onset of Diagnosis: 11/16/2019 Previous speech therapy: No Results: Due to lack of insurance coverage, the patient did not follow through with speech therapy services during chemoradiation. 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 From 02/05/2020 - 03/20/2020, he completed definitive chemoradiation therapy with concurrent weekly carboplatin. At follow-up visit with radiation oncologist 4 months post radiation, the patient reports he is eating food by mouth without any difficulty. He denies odynophagia, dysphagia, coughing/choking with swallowing. His weight has remained stable. He denies hoarseness or otalgia. He does complain of lymphedema in the anterior neck which is worsened over the last month. He reports normal neck range of motion without tightness. He does have continued dry mouth and uses Biotene and water for relief. He believes taste is about 100%. He is working full-time. He quit smoking about 1 month ago and is doing okay so far. The patient reports he has lymph fluid that makes it hard to swallow. He notes voice changes at times with lymph fluid build-up. He is currently receiving occupational therapy to address these issues. He denies avoiding any foods, but states he has to chew thoroughly before swallowing. He also frequently washes foods with liquids. Medications related to this diagnosis: blood pressure, cholesterol. Smoking Status: Former smoker Hx Smoking: Yes Years Smokin Hx Smoking Cessation Date: 01/30/20 - Pain Is pain an issue with your current prescribed condition?: No - Personal Occupation: [employer]er of [employer] Right Hearing Abillity: Hard of Hearing Left Hearing Abillity: Hard of Hearing Visual Assistive Devices: Glasses Patients Living Arrangements: Alone Patient Allergies - Allergies Allergies Penicillins Allergy (Verified 07/03/20 14:15) PT UNSURE OF REACTION Subjective Dysphagia - Symptoms Reported Symptoms/Problems with: Difficulty Swallowing Solids, Xerostomia - Current Diet Solids Current Diet: Regular - Current Diet Liquids Current Liquids: Thin Objective Dysphagia - Administered by Administered by: Self - Thin Liquids Administred via: Cup, Straw Oral Holding: No Gagging: No Comments: The pt consumed single and continuous sips of unthickened water via cup demonstrating mild delay initiating swallow, no overt s/s of aspiration. He occasionally initiated use of a double swallow independently. - Pureed Oral Holding: No Comments: Pt consumed trials of applesauce demonstrating no overt s/s of aspiration, oral residue WNL. He denied sensation of food caught in throat. - Regular Symptoms: Delayed Impaired Mastication: The pt demonstrated normal mastication abilities despite edentulous status. The pt has dentures, which were present for session, but reported he consumes all food without dentures in. He presented with prolonged but effective mashing of regular textured Amber Doone shortbread cookie. Patient Report: The pt noted requiring liquid wash due to dryness of textures. Comments: The pt consumed cookies with no overt s/s of aspiration immediately following consumption. He did present with delayed cough approximately 1 minute following completion of cookies 1X. - Results Swallowing Within Normal Limits: No Swallowing Diagnosis: Oropharyngeal Phase Dysphagia Additional: xerostomia and build up of lymph fluid likely contribute to mild dysphagia Severity: Mild Objective Cancer - Functional Oral Intake Scale Total oral diet with multiple consistencies without special preparation, but with specific food limitations: Level 6 Other Impressions - Comments Diet Recommendations -: Will recommend the patient for Regular textures / Thin liquids with aspiration precautions for small bites/sips, sips 1 at a time, slow rate, alternate liquids and solids, and upright 90 degrees for po intake. Cranial Nerve Examination -: CRANIAL NERVE EXAMINATION: TRIGEMINAL NERVE (V) ? impaired; decreased contraction of muscles of mastication, difficult to assess hyolaryngeal elevation upon digital palpation due to swelling of lymph fluid. FACIAL NERVE (VII) ? no clinical abnormalities observed. VAGUS NERVE (X) ? no clinical a bnormalities observed. HYPOGLOSSAL NERVE (XII) ? no clinical abnormalities observed. Swallowing Scale -: Performance Status Scale for Head and Neck Cancer Patients: Normalcy of Diet ? 90 ? Full diet (liquid assist). Public Eating ? 100 ? No restriction of place, food, or insights manager due to difficulty swallowing. Pt?s family have only recently began returning to restaurants after the COVID-19 pandemic. Understandability of Speech ? 100 ? Always understandable. Plan - Plan Plan: Will recommend the patient for skilled outpatient dysphagia therapy to address oropharyngeal dysphagia related to s/p chemoradiation for SCC of left tonsil and to provide the patient further education re: oropharyngeal exercise program, diet texture recommendations, aspiration precautions, and compensatory strategies to decrease risk for aspiration. Additionally, will provide ongoing assessment of diet tolerance post chemoradiation treatment. Without skilled ST services, the patient is at risk for aspiration, weight loss, and malnutrition. PHARMACOLOGY PROFESSOR recommended the patient for MBS study to objectively assess swallow function and aspiration. At this time, the pt wishes to wait on completion of the study due to financial reasons and insurance coverage. Will plan to discuss recommendation for MBS study in upcoming session planned in 3 weeks. - Recommendations MBS: Yes Treatment Warranted: Yes - Frequency Frequency: Every 3 weeks Duration: 12 Months - Prognosis Prognosis: Excellent - Goals that are Established: Determination:: Goals will be added/modified as deemed necessary and appropriate. Therapy will be discontinued when results of re-evaluation indicate therapy is no longer needed or lack of progress has been documented. - Goal #1-5 Goal #1: The patient will consume least restrictive diet textures without overt s/s of aspiration with 90% accuracy with minimal verbal cues for use of compensatory strategies to decrease risk for aspiration. Goal #2: The patient will complete an oropharyngeal exercise program during and post radiation treatment X10 repetitions, 3-5X daily independently to improve and maintain strength, ROM, and coordination of swallowing mechanism. Goal #3: The patient will participate in MBS study to objectively assess swallow function and provide recommendations for safest, least restrictive diet and compensatory strategies to reduce risk for aspiration. Education - Patient has Indicated that the Following Identified Educational Needs: None The Patient has indicated that they have no educational or learning abilities that may effect their care.: Yes - Patient Instruction Patient Education: Diagnosis, Treatment Plan, Goals, Safety Precautions, Diet Level, Home Exercise Program Other Education: Education provided regarding the potential impacts of chemoradiation treatment on swallow function during and post treatment, including effects such as dysgeusia, trismus, lymphedema, and radiation fibrosis which may result in restricted range of motion and weakness of swallowing mechanism. Discussed impaired swallowing and increased risk for aspiration, aspiration related illnesses, weight loss, and malnutrition. Discussed importance for speech therapy to monitor and address dysphagia post chemoradiation treatment to maintain optimal swallow function through continued education and prophylactic exercise program. Provided the patient a handout and demonstration of oropharyngeal exercise program. The patient provided return demonstration with all exercises with minimal verbal cues and initial demonstration from PHARMACOLOGY PROFESSOR. The patient would benefit from continued training to monitor proper execution of exercises and encourage strict adherence to exercise program. Person Taught: Patient Teaching Method: Discussion, Demonstration, Handout Response to teaching: Return demonstration, Verbalize understanding, Reinforcement needed
--- NOTE | 2020-09-17 13:24 | HP.SP.DC ---
ST Discharge Summary - Discharged: Discharge: The patient participated in speech therapy evaluation 08/20/2020 to evaluate swallow function s/p chemoradiation and L tonsillectomy. POC initiated with recommendation for MBS study and instruction for prophylactic oropharyngeal exercise program. BLOW MOLDING MACHINE TENDER called the patient on 09/17/20 to follow up after no show the previous week. Pt stated he intended to cancel his missed appointment and is not planning in participating in follow-up sessions. BLOW MOLDING MACHINE TENDER re-educated the patient on the halfway effects of radiation treatment on swallow function; however, the pt declined scheduling additional speech therapy visits. He will be discharged from speech therapy at this time.
== END 2020-08-20 19:00 | disposition home or self-care (01) ==
LOC: SP 09:23
PROVIDERS: PCP Family Medicine; Referring Provider Student in an Organized Health Care Education/Training Program; Visit Provider Student in an Organized Health Care Education/Training Program
DX: C09.9 Malignant neoplasm of tonsil, unspecified (principal)
CPT/HCPCS: 92610

== ENCOUNTER → 2021-01-14 08:04 | Outpatient (CLI) | payer OTHER, SELFPAY ==
[2020-01-16 09:22] VITALS: BMI 28.9
--- NOTE | 2021-01-14 08:06 | CT_ITS ---
STUDY: CT SOFT TISSUE NECK WITH CONTRAST REASON FOR EXAM: Male, 61 years old. NEW LEFT NECK MASS RADIATION DOSAGE (If Supplied By Facility): CTDIvol = ( 18.47 ) mGy, DLP = ( 576.76 ) mGycm TECHNIQUE: The patient was scanned in a multi-detector CT scanner. High resolution transaxial imaging was performed following intravenous administration of IV 75mL Isovue-370. Sagittal and coronal images were reconstructed. Individualized dose optimization techniques were used for this CT. COMPARISON: Comparison is made with prior study dated 12/05/2019. FINDINGS: Normal bilateral parotid glands. Normal bilateral powerhouse mechanic helper spaces. Normal bilateral parapharyngeal spaces. Normal bilateral carotid spaces. Atherosclerotic calcification of the carotid bifurcations as well as the aortic arch. Normal bilateral sublingual and submandibular glands and spaces. Normal visualized nasopharynx. Normal retropharyngeal space. Normal perivertebral space. Normal visualized bilateral faucial tonsils. The visualized tongue, tongue base and oropharynx are normal. The visualized cervical lymph nodes (levels I-) are within normal size limits, and maintain normal morphology. The previously seen 3 cm necrotic left jugular lymph node at the level of the floor the mouth is not seen at this time. Mild residual increased markings are seen in the surrounding fat most likely postsurgical in nature. There is no abnormal contrast enhancement. Normal epiglottis, bilateral vallecula and hypopharynx. The pre-epiglottic and paraglottic adipose spaces are normal. Normal visualized bilateral piriform sinuses, aryepiglottic folds, vocal cords, and arytenoid-cricoid articulations. Normal subglottic trachea. Normal bilateral lobes of the thyroid gland. Normal visualized pulmonary apices. Normal visualized paranasal sinuses. There is multilevel degenerative changes of the cervical spine. CT/Soft Tissue Neck WITH Contrast IMPRESSION: The previously seen 3 cm necrotic jugular lymph nodes on the left side at the level of the floor the mouth is not seen at this time. Mild degree of residual increased markings in the surrounding fat is seen most likely secondary to postsurgical changes. Electronically Signed: Juan Graves MD at 13:46 EST , Service support ,
[2021-01-14 08:16] LABS: CREATININE FINGERSTICK 0.7 mg/dL (0.70-1.30); EGFR FINGERSTICK > 60.0000 mL/min (>60)
== END ==
LOC: CT 08:04
PROVIDERS: PCP Family Medicine; Referring Provider Otolaryngology; Visit Provider Otolaryngology
DX: R22.1 Localized swelling, mass and lump, neck (principal); Z85.818 Personal history of malignant neoplasm of other sites of lip, oral cavity, and pharynx; Z92.21 Personal history of antineoplastic chemotherapy
CPT/HCPCS: 70491; Q9967

== ENCOUNTER → 2022-12-25 | Outpatient (CLI) | payer OTHER, SELFPAY ==
[2020-01-16 09:22] VITALS: BMI 28.9
--- NOTE | 2022-12-25 07:41 | CT_ITS ---
STUDY: LOW DOSE CT LUNG CANCER SCREENING REASON FOR EXAM: Male, 62 years old. One pack per day smoker x48 years RADIATION DOSAGE (If Supplied By Facility): CTDIvol = ( 2.01 ) mGy, DLP = ( 70.47 ) mGycm TECHNIQUE: No contrast was administered. Low dose technique was utilized (average mAS-38 and kVp 120). 1.25 mm axial source images with a slice interval of 1.25-mm were reconstructed in lung windows. 2.5 mm axial source images with a slice interval of 2.5-mm were reconstructed in lung windows. 5.0 mm axial source images with a slice interval of 5.0-mm were reconstructed in soft tissue windows. COMPARISON: Previous PET studies FINDINGS: Underlying emphysema with bleb formation throughout both lung meyers. Chronic interstitial changes noted in both lung meyers with scarring noted in the right middle lobe. No organized infiltrate, or effusion. No suspicious noncalcified mass or nodule. Diffuse nonspecific pleural thickening noted in both hemithoraces. Limited soft tissue windows show a normal-appearing thyroid gland. No suspicious adenopathy. Peripheral calcifications are noted in the thoracic aorta without aneurysm. There are calcified coronary vessels. Limited cuts through the upper abdomen do not show a suspicious abnormality. Bony structures show degenerative change CT/Low Dose CT Lung Screening IMPRESSION: Lung-RADS category 2 - Continue annual screening with LDCT in 12 months. IMPORTANT NOTES FOR USE: ACR Lung-RADS Version 1.1 Assessment Categories Release Date: 2018 Category: Coded 0-4 bases on nodule(s) with highest degree of suspicion. Negative screen is defined as categories 1 and 2; a positive screen is defined as categories 3 and 4. Category 3 and 4A nodules that are unchanged on interval CT should be coded as category 2, and individuals returned to screening in 12 months. Category 4X: Category 3 or 4 nodules with additional imaging findings that increase the suspicion of lung cancer, such as spiculation, GGN that doubles in size in 1 year, enlarged lymph notes, etc. Category Modifiers: S (significant finding unrelated to lung cancer) Electronically Signed: Chevy Hawkins MD at 9:21 EDT ,
== END | disposition home or self-care (01) ==
LOC: CT 07:41
PROVIDERS: PCP Family Medicine; Referring Provider Nurse Practitioner Family; Visit Provider Nurse Practitioner Family
DX: Z12.2 Encounter for screening for malignant neoplasm of respiratory organs (principal); Z87.891 Personal history of nicotine dependence
CPT/HCPCS: 71271

== ENCOUNTER → 2024-03-07 | Outpatient (CLI) | payer MEDICARE, OTHER, SELFPAY ==
[2020-01-16 09:22] VITALS: BMI 28.9
--- NOTE | 2024-03-07 12:06 | CT_ITS ---
STUDY: LOW DOSE CT LUNG CANCER SCREENING REASON FOR EXAM: Male, 64 years old. Lung cancer screening -- 50 pk yr hx;former smoker;asymptomatic RADIATION DOSAGE (If Supplied By Facility): CTDIvol = ( 3.02 ) mGy, DLP = ( 104.58 ) mGycm TECHNIQUE: No contrast was administered. Low dose technique was utilized (average mAS-38 and kVp 120). 1.25 mm axial source images with a slice interval of 1.25-mm were reconstructed in lung windows. 2.5 mm axial source images with a slice interval of 2.5-mm were reconstructed in lung windows. 5.0 mm axial source images with a slice interval of 5.0-mm were reconstructed in soft tissue windows. COMPARISON: Comparison is made with prior study December 25, 2022. NODULES: No suspicious nodules are seen. Emphysema: Hyperinflation. Diffuse emphysematous changes. Stable bullous changes in the anterior aspect of the right lung apex. Stable interstitial change suggestive of scarring in the right middle lobe. Endobronchial lesion: None Aorta: No significant aortic calcification is seen. CORONARY ARTERIES: Coronary artery calcification is seen. Heart: Unremarkable Pulmonary artery: Unremarkable Mediastinal nodes: Unremarkable Other chest and abdominal findings: CT/Low Dose CT Lung Screening IMPRESSION: Lung-RADS category 2 - Continue annual screening with LDCT in 12 months. IMPORTANT NOTES FOR USE: ACR Lung-RADS Version 1.1 Assessment Categories Release Date: 2018 Category: Coded 0-4 bases on nodule(s) with highest degree of suspicion. Negative screen is defined as categories 1 and 2; a positive screen is defined as categories 3 and 4. Category 3 and 4A nodules that are unchanged on interval CT should be coded as category 2, and individuals returned to screening in 12 months. Category 4X: Category 3 or 4 nodules with additional imaging findings that increase the suspicion of lung cancer, such as spiculation, GGN that doubles in size in 1 year, enlarged lymph notes, etc. Category Modifiers: S (significant finding unrelated to lung cancer) Electronically Signed: Juan Graves MD at 12:58 EST ,
== END | disposition home or self-care (01) ==
LOC: CT 12:06
PROVIDERS: Referring Provider Nurse Practitioner Family; Visit Provider Nurse Practitioner Family
DX: Z87.891 Personal history of nicotine dependence (principal); Z12.2 Encounter for screening for malignant neoplasm of respiratory organs
CPT/HCPCS: 71271